=== PATIENT | female | born 1990 | race Hispanic/Latino ===

== ENCOUNTER 2024-03-10 10:40 | Emergency (ER) | payer OTHER ==
[~2024-03-10] VITALS: Ht 162.6 cm; Wt 75.0 kg
[2024-03-10] MEDS ORDERED: SERT-141 PO (12:47)
[2024-03-10] MEDS: KETOROLAC 30 MG/ML 1ML VIAL IM ONE (14:59)
[2024-03-10] MEDS: diazePAM 5MG TABLET PO ONE (14:59)
[2024-03-10] MEDS: LIDOCAINE 5% (LIDODERM) PATCH TD ONE (14:59)
[2024-03-10] MEDS ORDERED: DICL75TA PO (16:47)
[2024-03-10] MEDS ORDERED: BACL10TA2 PO (16:47)
[2024-03-10] MEDS ORDERED: LIDO5DIS41 TD (16:47)
[2024-03-10 16:57] VITALS: BP 109/70; TEMP 97.5; O2SAT 97
== END 2024-03-10 17:00 | disposition home or self-care (01) ==
LOC: M ED 10:40
DX: M54.31 Sciatica, right side (principal); Z79.899 Other long term (current) drug therapy
CPT/HCPCS: 72131; 73502; 96372; 99283; J1885

== ENCOUNTER → 2024-05-31 | Outpatient (CLI) | payer OTHER ==
[~2024-05-31] MED LIST: BACL10TA2 PO; DICL75TA PO; LIDO5DIS41 TD; SERT-141 PO
== END ==
LOC: M PLAIMG 10:06
PROVIDERS: ATTEND Pain Medicine Interventional Pain Medicine
DX: M54.59 Other low back pain (principal)

== ENCOUNTER → 2024-06-29 | Outpatient (CLI) | payer OTHER ==
[2024-06-29 18:06] LABS: FREE T4 1.22 NG/DL (0.89-1.76)
[2024-06-29 18:07] LABS: THYROID STIMULATING HORMONE 1.492 uIU/ML (0.55-4.78)
== END ==
LOC: M LAB 16:27
PROVIDERS: ATTEND Physician Assistant Medical
DX: R19.4 Change in bowel habit (principal)

== ENCOUNTER → 2024-06-29 | Outpatient (REF) | payer OTHER | LOC: M LAB REF 16:11 | PROVIDERS: ATTEND Physician Assistant Medical | DX: R19.4 Change in bowel habit (principal) ==

== ENCOUNTER 2024-09-20 09:53 | Day surgery (SDC) | payer OTHER ==
[~2024-09-20] VITALS: Ht 162.6 cm; Wt 76.1 kg
[~2024-09-20 09:53] MED LIST changes: +GLYCOPYRROLATE INJ 0.2 MG/ML 2 ML VIAL As Ordered ONE; +LIDOCAINE 2% 100MG/5ML SDV (FOR ANES.) As Ordered ONE; +THERTAB52 PO; +VITA100093 PO; +fentaNYL 100 MCG/2 ML INJECTION As Ordered ONE; +propofoL 200 MG/20 ML VIAL As Ordered ONE
[2024-09-20 11:46] VITALS: TEMP 97.8
[2024-09-20 12:08] VITALS: BP 116/70; O2SAT 99
== END 2024-09-20 12:15 | disposition home or self-care (01) ==
LOC: M OPP 09:53
PROVIDERS: ATTEND Internal Medicine Gastroenterology
DX: R12 Heartburn (principal); K64.8 Other hemorrhoids; K58.0 Irritable bowel syndrome with diarrhea; R19.4 Change in bowel habit; Z87.891 Personal history of nicotine dependence; F41.9 Anxiety disorder, unspecified; F32.A Depression, unspecified; Z79.899 Other long term (current) drug therapy
CPT/HCPCS: 43235; 45378; J1596; J3010

== ENCOUNTER → 2025-06-13 | Outpatient (CLI) | payer OTHER ==
[~2025-06-13] MED LIST changes: -GLYCOPYRROLATE INJ 0.2 MG/ML 2 ML VIAL As Ordered ONE; +LIDO1ADH93 TD; -LIDO5DIS41 TD; -LIDOCAINE 2% 100MG/5ML SDV (FOR ANES.) As Ordered ONE; -fentaNYL 100 MCG/2 ML INJECTION As Ordered ONE; -propofoL 200 MG/20 ML VIAL As Ordered ONE
== END ==
LOC: M WHC 09:24
PROVIDERS: ATTEND Physician Assistant
DX: N60.11 Diffuse cystic mastopathy of right breast (principal); N64.4 Mastodynia; R92.333 Mammographic heterogeneous density, bilateral breasts; N60.12 Diffuse cystic mastopathy of left breast
CPT/HCPCS: 76641; 77066; G0279